=== PATIENT | female | born 1960 | race Caucasian/White ===

== ENCOUNTER → 2020-03-25 07:50 | Outpatient (CLI) | payer MEDICAID, SELFPAY ==
[2020-03-18 09:50] VITALS: BMI 34.1
--- NOTE | 2020-03-25 07:52 | ECHOD_ITS ---
Reason For Study: Arrhythmia Procedure This was a 2D Doppler, Color Flow transthoracic echocardiogram. Exam performed in department. Left Ventricle Normal LV size. Left ventricular systolic function is normal. The estimated ejection fraction is 65 %. Stage 1 diastolic dysfunction. No regional wall motion abnormalities noted. Right Ventricle Normal RV size. Normal systolic function. Atria Normal left atrium. Normal right atrium. Mitral Valve Normal mitral valve. Tricuspid Valve Normal tricuspid valve. Mild tricuspid valve insufficiency. Pulmonary artery systolic pressure is 20 mmHg. Aortic Valve Normal aortic valve. Trisinus/trileaflet aortic valve. Pulmonic Valve Normal pulmonic valve. Great Vessels Normal aortic root. The pulmonary artery is normal size. Normal inferior vena cava. Pericardium/Pleural No pericardial effusion. MMode/2D Measurements & Calculations LVIDd: 4.0 cm IVSd: 0.73 cm Ao root diam: 2.7 cm LVIDs: 2.5 cm LVPWd: 0.78 cm RVDd: 2.9 cm FS: 38.4 % LAV(MOD-bp): 35.4 ml LVAd ap4: 22.0 cm2 SV(MOD-sp4): 29.5 ml LAV(MOD-bp) Indexed: 18.1 ml/m2 EDV(MOD-sp4): 56.2 ml LAV(MOD-sp2): 30.8 ml EDV(sp4-el): 58.8 ml LAV(MOD-sp4): 40.8 ml LVAs ap4: 14.0 cm2 ESV(MOD-sp4): 26.7 ml ESV(sp4-el): 27.4 ml EF(MOD-sp4): 52.6 % EF(sp4-el): 53.5 % SV(sp4-el): 31.5 ml LA A4 area: 15.3 cm2 LA dimension(2D): 3.4 cm RA A4 area: 12.5 cm2 Doppler Measurements & Calculations MV E max chacorta: 62.7 cm/sec Lat Peak E' Chacorta: 6.6 cm/sec Med Peak E' Chacorta: 4.8 cm/sec MV A max chacorta: 75.6 cm/sec E/E' lat: 9.5 E/E' med: 13.1 MV E/A: 0.83 Ao V2 max: 117.3 cm/sec LV V1 max: 99.6 cm/sec PA V2 max: 100.0 cm/sec Ao max P.5 mmHg LV V1 max P.0 mmHg TR max chacorta: 201.0 cm/sec TR max P.2 mmHg Interpretation Summary Normal LV size. Left ventricular systolic function is normal. The estimated ejection fraction is 65 %. Stage 1 diastolic dysfunction. Ordering Physician: Toby Bynum Referring Physician: Asad Chapa Performed By: Katelyn Matson RDCS
== END ==
PROVIDERS: PCP Family Medicine; Referring Provider Internal Medicine Cardiovascular Disease; Visit Provider Internal Medicine Cardiovascular Disease
DX: R55 Syncope and collapse (principal)
CPT/HCPCS: 93306